=== PATIENT | male | born 1995 | race Caucasian/White ===

== ENCOUNTER 2019-03-31 17:03 | Emergency (ER) | payer MEDICAID ==
[~2019-03-31] VITALS: Ht 177.8 cm; Wt 85.0 kg
[2019-03-31] MEDS ORDERED: ACETAMINOPHEN 325MG TABLET PO STA (17:59)
[2019-03-31 18:15] LABS: CHLORIDE 107 mEq/L (98-107)
[2019-03-31] MEDS ORDERED: SODIUM CHLORIDE 0.9% 1,000 ML IV ONE (18:15)
[2019-03-31 18:19] LABS: BASOPHILS % 0.4 % (0.0-2.0); EOSINOPHILS % 0.2 % (0.0-5.0); HEMATOCRIT. 46.9 % (42.0-52.0); HEMOGLOBIN. 15.3 g/dL (14.0-18.0); LYMPHOCYTES % 9.9 % (20.0-50.0); MEAN CORPUSCULAR HEMOGLOBIN 30.7 pg (28.0-32.0); MEAN CORPUSCULAR VOLUME 94.2 fL (80.0-94.0); MEAN PLATELET VOLUME 7.8 fl (7.4-10.4); MONOCYTES % 3.8 % (2.0-8.0); NEUTROPHILS % 85.7 % (40.0-76.0); PLATELET 383 x1000/uL (130-400); RED BLOOD CELL COUNT 4.98 mill/uL (4.7-6.1); RED CELL DISTRIBUTION WIDTH 14.4 % (11.6-14.6)
[2019-03-31 18:20] LABS: ETHANOL BLOOD < 10 mg/dL
[2019-03-31 19:48] LABS: CLARITY URINE CLEAR (CLEAR); COLOR URINE YELLOW (YELLOW); KETONES URINE NEGATIVE (NEGATIVE); LEUKOCYTE ESTERASE URINE NEGATIVE (NEGATIVE); NITRITE URINE NEGATIVE (NEGATIVE); OCCULT BLOOD URINE NEGATIVE (NEGATIVE); PROTEIN URINE NEGATIVE (NEGATIVE); UROBILINOGEN URINE 0.2 E.U./dL (0.2-1.0)
[2019-03-31 20:58] LABS: *AMPHETAMINES SCREEN URINE NEGATIVE (NEGATIVE)
[2019-03-31 20:59] LABS: *BARBITURATES SCREEN URINE NEGATIVE (NEGATIVE); *BENZODIAZEPINES SCREEN URINE PRESUMTIVE POSITIVE (NEGATIVE); *COCAINE SCREEN URINE PRESUMTIVE POSITIVE (NEGATIVE); METHADONE URINE SCREEN NEGATIVE (NEGATIVE); OPIATES URINE SCREEN NEGATIVE (NEGATIVE)
[2019-03-31 21:00] LABS: CANNABINOID URINE SCREEN PRESUMTIVE POSITIVE (NEGATIVE); PHENCYCLIDINE URINE SCREEN NEGATIVE (NEGATIVE)
[2019-03-31 22:04] VITALS: BP 121/78
== END 2019-03-31 22:05 | disposition home or self-care (01) ==
LOC: ER 17:03
DX: G40.909 Epilepsy, unspecified, not intractable, without status epilepticus (principal); F12.10 Cannabis abuse, uncomplicated
CPT/HCPCS: 36415; 70450; 80053; 80305; 80320; 81003; 85025; 96360; 96361; 99284; J7030; G0480

== ENCOUNTER 2019-11-23 06:13 | Emergency (ER) | payer MEDICAID, MEDICARE ==
[~2019-11-23] VITALS: Ht 172.7 cm; Wt 91.0 kg
[2019-11-23] MEDS ORDERED: ONDANSETRON HCL 4MG/2ML INJ IV STA (06:17)
[2019-11-23] MEDS ORDERED: NALOXONE HCL 1 MG/ML 2ML VIAL ONE (06:25)
[2019-11-23 06:28] LABS: BASOPHILS % 1.7 % (0.0-2.0); EOSINOPHILS % 2.6 % (0.0-5.0); HEMATOCRIT. 39.9 % (42.0-52.0); HEMOGLOBIN. 13.4 g/dL (14.0-18.0); LYMPHOCYTES % 30.3 % (20.0-50.0); MEAN CORPUSCULAR HEMOGLOBIN 31.4 pg (28.0-32.0); MEAN CORPUSCULAR VOLUME 93.6 fL (80.0-94.0); MEAN PLATELET VOLUME 7.7 fl (7.4-10.4); MONOCYTES % 5.1 % (2.0-8.0); NEUTROPHILS % 60.3 % (40.0-76.0); PLATELET 384 x1000/uL (130-400); RED BLOOD CELL COUNT 4.26 mill/uL (4.7-6.1); RED CELL DISTRIBUTION WIDTH 14.1 % (11.6-14.6)
[2019-11-23] MEDS ORDERED: NALOXONE HCL 0.4 MG/ML 1ML VIAL IV ONE (06:30)
[2019-11-23 06:35] LABS: CHLORIDE 100 mEq/L (98-107)
[2019-11-23 06:40] LABS: ETHANOL BLOOD < 10 mg/dL
[2019-11-23 06:47] LABS: CLARITY URINE CLEAR (CLEAR); COLOR URINE YELLOW (YELLOW); KETONES URINE NEGATIVE (NEGATIVE); LEUKOCYTE ESTERASE URINE NEGATIVE (NEGATIVE); NITRITE URINE NEGATIVE (NEGATIVE); OCCULT BLOOD URINE NEGATIVE (NEGATIVE); PROTEIN URINE NEGATIVE (NEGATIVE); SPECIFIC GRAVITY URINE 1.013 (1.005-1.030); UROBILINOGEN URINE 0.2 E.U./dL (0.2-1.0)
[2019-11-23 06:57] LABS: BG BASE EXCESS -1.2 mmol/L (-2.0-2.0); BG DEOXYHEMOGLOBIN 5.1 % (0.0-5.0); BG FRACTION INSPIRED OXYGEN 21; BG HCO3 ACT 23.6 mmol/L (22.0-26.0); BG OXYGEN SATURATION 94.7 % (92.0-98.5); BG OXYHEMOGLOBIN 91.9 % (94.0-97.0); BG PCO2 40.2 mmHg (35.0-45.0); BG PH 7.387 (7.350-7.450); BG PO2 75.8 mmHg (75.0-100.0); BG SAMPLE SITE RIGHT BRACHIAL; BG TOTAL HEMOGLOBIN 13.2 g/dL (12.0-18.0); BG VENT MODE ROOM AIR
[2019-11-23 07:11] LABS: *AMPHETAMINES SCREEN URINE NEGATIVE (NEGATIVE)
[2019-11-23 07:12] LABS: *BARBITURATES SCREEN URINE NEGATIVE (NEGATIVE); *BENZODIAZEPINES SCREEN URINE PRESUMTIVE POSITIVE (NEGATIVE); *COCAINE SCREEN URINE PRESUMTIVE POSITIVE (NEGATIVE); METHADONE URINE SCREEN NEGATIVE (NEGATIVE); OPIATES URINE SCREEN NEGATIVE (NEGATIVE); PHENCYCLIDINE URINE SCREEN NEGATIVE (NEGATIVE)
[2019-11-23 07:13] LABS: CANNABINOID URINE SCREEN PRESUMTIVE POSITIVE (NEGATIVE)
[2019-11-23 10:20] VITALS: BP 112/57
== END 2019-11-23 10:23 | disposition home or self-care (01) ==
LOC: ER 06:13
DX: F19.10 Other psychoactive substance abuse, uncomplicated (principal); I49.9 Cardiac arrhythmia, unspecified
CPT/HCPCS: 36415; 36600; 70450; 71045; 80053; 80305; 80320; 81003; 82375; 82805; 82962; 85025; 93005; 96374; 96375; 99285; J2310; J2405; G0480